=== PATIENT | male | born 1940 | race Caucasian/White ===

== ENCOUNTER 2021-03-11 17:44 | Inpatient (IN) | payer OTHER, SELFPAY ==
[2021-03-11] VITALS (71 sets, daily range): BP systolic 115–202; BP diastolic 57–89; PULSE 57–126; RESP 11–28; TEMP 37.2; O2SAT 83–99; BMI 28.5
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
[2021-03-11] MEDS: MORPHINE 4 MG/ML INJ (17:56)
[2021-03-11 17:57] LABS: Add Manual Diff / Slide Review NO; Basophils Absolute Auto 0 /uL (0-100); Basophils Percent Auto 0.6 % (0-2); Eosinophils Absolute Auto 300 /uL (0-450); Eosinophils Percent Auto 3.6 % (2-4); Hematocrit 41.1 % (41-53); Hemoglobin 13.7 g/dL (13.5-17.5); Lymphocytes Absolute Auto 2200 /uL (1100-4500); Lymphocytes Percent Auto 27.2 % (25-40); Mean Corpuscular HGB Conc 33.3 % (30-36); Mean Corpuscular Hemoglobin 30.1 PG (26-34); Mean Corpuscular Volume 90.4 fL (80-100); Monocytes Absolute Auto 500 /uL (0-900); Monocytes Percent Auto 6.8 % (3-14); Neutrophils Absolute Auto 4900 /uL (1500-7000); Neutrophils Percent Auto 61.8 % (50-75); Platelet Count 252 X10^3/uL (150-400); Red Blood Cell Count 4.54 X10^6/uL (4.5-5.9); Red Cell Distribution Width 14.7 % (11.6-14.8); White Blood Cell Count 7.9 X10^3/uL (4.5-11.0)
[2021-03-11 17:58] LABS: Prothrombin Time 46.5 SECONDS (10.1-12.7)
[2021-03-11 18:01] LABS: PTT Partial Thromboplastin Tim 46 SECONDS (26.4-36.2)
[2021-03-11 18:03] LABS: Alanine Aminotransferase 51 IU/L (<50); Albumin 4.7 g/dL (3.5-5.0); Albumin Globulin Ratio 1.3 (1.0-2.8); Alkaline Phosphatase 90 U/L (38-126); Aspartate Aminotransferase 39 IU/L (17-59); BUN Creatinine Ratio 18.2 (6-22); Bilirubin Total 0.5 mg/dL (0.2-1.3); Blood Urea Nitrogen 22 mg/dL (9-20); Calcium 9.6 mg/dL (8.4-10.2); Carbon Dioxide 32 mmol/L (22-32); Chloride 102 mmol/L (98-107); Creatine Kinase 140 U/L (55-170); Estimated Glomerular Filt Rate 57.7 mL/min (>60); Globulin 3.6 g/dL (1.7-4.1); Glucose 147 mg/dL (80-110); HEMOLYSIS 23 (0-50); Potassium 4.6 mmol/L (3.4-5.1); Sodium 140 mmol/L (137-145); Total Protein 8.3 g/dL (6.3-8.2)
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
[2021-03-11 18:15] LABS: Troponin I < 0.012 ng/mL (0.01-0.034)
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
[2021-03-11 18:18] LABS: CKMB % Relative Index 1.9 % (1.5-5.0); Creatine Kinase MB 2.62 ng/mL (<2.37)
[2021-03-11 18:20] LABS: Lactate (Lactic Acid) 1.8 mmol/L (0.7-2.1)
[2021-03-11] MEDS: HYDROMORPHONE 0.5 MG INJ IV (19:05)
--- NOTE | 2021-03-11 19:25 | DI.RAD.S_ITS ---
PROCEDURE: XR KNEE LT 1TO2V INDICATIONS: pain swelling TECHNIQUE: 2 views of the knee were acquired. COMPARISON: None. FINDINGS: Bones: There is a mildly displaced proximal left fibular diaphyseal fracture with overlying soft tissue edema. No suspicious bony lesions. Degenerative changes of the left knee are noted. Soft tissues: No joint effusion. No suspicious soft tissue calcifications. Surgical clips noted in the medial aspect of the left lower leg. IMPRESSION: Mildly displaced proximal left fibular diaphyseal fracture. Dictated by: Jai Vences M.D. on 03/11/2021 at 19:52 Approved by: Jai Vences M.D. on 03/11/2021 at 19:53
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
--- NOTE | 2021-03-11 20:57 | PC.NURSE ---
Called Dr. Mendez regarding pain medications. Med rec is now complete, she will review and place new orders.
[2021-03-11] MEDS: MORPHINE 2 MG/ML INJ IV (21:42)
[2021-03-11] MEDS: ONDANSETRON 4 MG/2 ML INJ (21:43)
[2021-03-11] MEDS: ATORVASTATIN 20 MG TABLET 40 MG PO (21:47)
[2021-03-11] MEDS: PRAMIPEXOLE 0.25 MG TABLET 1 MG PO (21:47)
[2021-03-11] MEDS: AMLODIPINE 5 MG TABLET 10 MG PO (21:47)
[2021-03-11] MEDS: DOCUSATE 100 MG CAPSULE PO (21:47)
[2021-03-11 21:48] LABS: COVID19 - ADMIT (NP swab/PCR) Negative (Negative)
[2021-03-11] MEDS: GABAPENTIN 600 MG TABLET 1200 MG PO (21:48)
[2021-03-11] MEDS: carvediloL 12.5 MG TABLET PO (21:48)
[2021-03-11] MEDS: lisinopriL 20 MG TABLET PO (21:48)
[2021-03-11] MEDS: AMITRIPTYLINE 25 MG TABLET 50 MG PO (21:49)
[2021-03-11] MEDS: CITALOPRAM 10 MG TABLET 20 MG PO (21:49)
[2021-03-11] MEDS: DEXTROSE 5%-0.45% NS 1,000 ML 75 ML IV (22:03)
[2021-03-11 22:28] LABS: Hematocrit 34.7 % (41-53); Hemoglobin 11.5 g/dL (13.5-17.5)
--- NOTE | 2021-03-11 22:47 | PC.NURSE ---
2210: Pt noted to have increased HR at 126. Unable to identify rhythm on monitor. RT called for EKG. repeat H&H drawn. Pt with h/o afib and takes warfarin. INR 4.0 tonight and warfarin held. When RT in room for EKG pt noted to convert to NSR 64. NAD. Pt uncomfortable on stretcher and inpt hospital bed requested. turned on R side for comfort. attempting to sleep. at bedside.
[2021-03-11] MEDS: ONDANSETRON 4 MG/2 ML INJ IV (23:24)
[2021-03-11] MEDS: OXYCODONE IR 5 MG TABLET PO (23:24)
--- NOTE | 2021-03-11 23:25 | PC.NURSE ---
Dressings changed on forehead and under nose. pt moved to inpatient bed. appears more comfortable, medicated for pain. NAD. at bedside
--- NOTE | 2021-03-11 23:42 | PC.NURSE ---
Call placed to Dr Mendez regarding decrease in H&H and pt converting in and out of AFib. Orders for type and screen and Vitamin K 10 mg IVPB.
[2021-03-12] VITALS (20 sets, daily range): BP systolic 105–156; BP diastolic 52–98; PULSE 66–80; RESP 10–27; TEMP 36.6–36.8; O2SAT 91–100; BMI 28.5
[2021-03-12] MEDS: PHYTONADIONE (VIT K1) 10 MG in SODIUM CHLORIDE 0.9% 100 ML 202 ML IV (00:20)
[2021-03-12] MEDS: MORPHINE 2 MG/ML INJ IV ×2 (00:31→09:48)
[2021-03-12] MEDS: MORPHINE 4 MG/ML INJ IV ×4 (02:35→20:54)
[2021-03-12] MEDS: METOCLOPRAMIDE 10 MG/2 ML INJ IV (02:36)
[2021-03-12 06:03] LABS: Add Manual Diff / Slide Review NO; Basophils Absolute Auto 0 /uL (0-100); Basophils Percent Auto 0.5 % (0-2); Eosinophils Absolute Auto 100 /uL (0-450); Eosinophils Percent Auto 0.5 % (2-4); Hematocrit 30.9 % (41-53); Hemoglobin 10.4 g/dL (13.5-17.5); Lymphocytes Absolute Auto 1000 /uL (1100-4500); Lymphocytes Percent Auto 9.9 % (25-40); Mean Corpuscular HGB Conc 33.5 % (30-36); Mean Corpuscular Hemoglobin 30.2 PG (26-34); Monocytes Absolute Auto 600 /uL (0-900); Monocytes Percent Auto 6.6 % (3-14); Neutrophils Absolute Auto 8000 /uL (1500-7000); Neutrophils Percent Auto 82.5 % (50-75); Platelet Count 204 X10^3/uL (150-400); Red Blood Cell Count 3.43 X10^6/uL (4.5-5.9); Red Cell Distribution Width 14.8 % (11.6-14.8); White Blood Cell Count 9.7 X10^3/uL (4.5-11.0)
[2021-03-12 06:06] LABS: Alanine Aminotransferase 33 IU/L (<50); Albumin 3.4 g/dL (3.5-5.0); Albumin Globulin Ratio 1.3 (1.0-2.8); Alkaline Phosphatase 53 U/L (38-126); Aspartate Aminotransferase 29 IU/L (17-59); BUN Creatinine Ratio 17.4 (6-22); Bilirubin Total 0.7 mg/dL (0.2-1.3); Blood Urea Nitrogen 19 mg/dL (9-20); Calcium 8.4 mg/dL (8.4-10.2); Carbon Dioxide 31 mmol/L (22-32); Chloride 104 mmol/L (98-107); Estimated Glomerular Filt Rate > 60.0 mL/min (>60); Globulin 2.7 g/dL (1.7-4.1); Glucose 173 mg/dL (80-110); HEMOLYSIS < 15 (0-50); Potassium 4.5 mmol/L (3.4-5.1); Sodium 136 mmol/L (137-145); Total Protein 6.1 g/dL (6.3-8.2)
[2021-03-12 06:14] LABS: NT-proBNP (BNP-Adult 18+) 214 pg/mL (<450)
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
[2021-03-12 08:03] LABS: INR 1.8 (0.9-1.3); Prothrombin Time 20.2 SECONDS (10.1-12.7)
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
[2021-03-12] MEDS: MORPHINE ER 15 MG TABLET PO ×2 (08:21→20:14)
[2021-03-12] MEDS: DOCUSATE 100 MG CAPSULE PO ×2 (08:22→20:10)
[2021-03-12] MEDS: lisinopriL 20 MG TABLET PO ×2 (08:22→20:13)
[2021-03-12] MEDS: GABAPENTIN 600 MG TABLET PO (08:23)
[2021-03-12] MEDS: carvediloL 12.5 MG TABLET PO ×2 (08:23→20:11)
[2021-03-12] MEDS: OXYCODONE IR 5 MG TABLET 15 MG PO ×2 (09:28→20:10)
[2021-03-12] MEDS: polyethylene glycoL 3350 17 GM POWD.PACK PO ×3 (09:36→20:09)
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
[2021-03-12] MEDS: DEXTROSE 5%-0.45% NS 1,000 ML 75 ML IV (12:14)
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
[2021-03-12] MEDS: OXYCODONE IR 5 MG TABLET PO (18:01)
[2021-03-12] MEDS: ACETAMINOPHEN 325 MG TABLET 650 MG PO (18:01)
[2021-03-12] MEDS: WARFARIN 5 MG TABLET PO (18:02)
--- NOTE | 2021-03-12 18:48 | PC.NURSE ---
Pt has been taking a nap on/off. medicated with morphine then he fell asleep. pt worked with PT. PT/OT assist only. pt ate his dinner. at bedside
[2021-03-12] MEDS: CITALOPRAM 10 MG TABLET 20 MG PO (20:09)
[2021-03-12] MEDS: AMLODIPINE 5 MG TABLET 10 MG PO (20:11)
[2021-03-12] MEDS: ATORVASTATIN 20 MG TABLET 40 MG PO (20:13)
[2021-03-12] MEDS: AMITRIPTYLINE 25 MG TABLET 50 MG PO (20:15)
[2021-03-12] MEDS: PRAMIPEXOLE 1 MG TABLET PO (20:17)
[2021-03-12] MEDS: ONDANSETRON 4 MG/2 ML INJ IV (21:01)
[2021-03-12] MEDS: GABAPENTIN 600 MG TABLET 1200 MG PO (21:03)
[2021-03-13] VITALS (10 sets, daily range): BP systolic 128–163; BP diastolic 44–64; PULSE 73–89; RESP 18–19; TEMP 36.9–38; O2SAT 88–96; BMI 28.4
[2021-03-13] MEDS: METOCLOPRAMIDE 10 MG/2 ML INJ IV (00:44)
[2021-03-13] MEDS: MORPHINE 4 MG/ML INJ IV ×2 (00:44→12:12)
[2021-03-13] MEDS: DEXTROSE 5%-0.45% NS 1,000 ML 75 ML IV (01:54)
[2021-03-13] MEDS: OXYCODONE IR 5 MG TABLET PO ×2 (06:43→15:41)
[2021-03-13] MEDS: ACETAMINOPHEN 325 MG TABLET 650 MG PO ×2 (06:44→15:42)
[2021-03-13] MEDS: carvediloL 12.5 MG TABLET PO ×2 (09:08→21:57)
[2021-03-13] MEDS: GABAPENTIN 600 MG TABLET PO (09:08)
[2021-03-13] MEDS: DOCUSATE 100 MG CAPSULE PO ×2 (09:08→21:52)
[2021-03-13] MEDS: lisinopriL 20 MG TABLET PO ×2 (09:08→21:52)
[2021-03-13] MEDS: OXYCODONE IR 5 MG TABLET 15 MG PO ×2 (09:09→21:51)
[2021-03-13] MEDS: MORPHINE ER 15 MG TABLET PO ×2 (09:12→21:56)
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
--- NOTE | 2021-03-13 12:09 | CM.DPNOTE ---
Faxed referral pckt. to [facility] per Debra and received fax conf. Gail Alfaro CM Asst.
[2021-03-13] MEDS: SODIUM CHLORIDE 0.9% FLUSH 10 ML IV ×2 (12:12→22:05)
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
--- NOTE | 2021-03-13 15:03 | OT.IPNOTE ---
Went to go see pt for OT eval and able to talk to the pt and his . Pt states just got back into bed and would rather wait until tomorrow for OT eval.
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
[2021-03-13] MEDS: MAG HYDROX/ALUM/SIMETH 30 ML UDC PO (15:41)
[2021-03-13 15:54] LABS: Add Manual Diff / Slide Review NO; Basophils Absolute Auto 0 /uL (0-100); Basophils Percent Auto 0.2 % (0-2); Eosinophils Absolute Auto 400 /uL (0-450); Eosinophils Percent Auto 2.8 % (2-4); Hematocrit 31.5 % (41-53); Hemoglobin 10.3 g/dL (13.5-17.5); Lymphocytes Absolute Auto 1400 /uL (1100-4500); Lymphocytes Percent Auto 10.3 % (25-40); Mean Corpuscular HGB Conc 32.6 % (30-36); Mean Corpuscular Hemoglobin 29.9 PG (26-34); Mean Corpuscular Volume 91.7 fL (80-100); Monocytes Absolute Auto 1600 /uL (0-900); Monocytes Percent Auto 11.1 % (3-14); Neutrophils Absolute Auto 10500 /uL (1500-7000); Neutrophils Percent Auto 75.6 % (50-75); Platelet Count 167 X10^3/uL (150-400); Red Blood Cell Count 3.43 X10^6/uL (4.5-5.9); Red Cell Distribution Width 15.4 % (11.6-14.8); White Blood Cell Count 13.9 X10^3/uL (4.5-11.0)
[2021-03-13] MEDS: WARFARIN 5 MG TABLET PO (17:11)
[2021-03-13] MEDS: PRAMIPEXOLE 1 MG TABLET PO (21:50)
[2021-03-13] MEDS: AMITRIPTYLINE 25 MG TABLET 50 MG PO (21:51)
[2021-03-13] MEDS: ATORVASTATIN 20 MG TABLET 40 MG PO (21:51)
[2021-03-13] MEDS: AMLODIPINE 5 MG TABLET 10 MG PO (21:56)
[2021-03-13] MEDS: CITALOPRAM 10 MG TABLET 20 MG PO (21:56)
[2021-03-13] MEDS: GABAPENTIN 600 MG TABLET 1200 MG PO (21:56)
[2021-03-13] MEDS: polyethylene glycoL 3350 17 GM POWD.PACK PO (22:00)
[2021-03-14] VITALS (14 sets, daily range): BP systolic 121–159; BP diastolic 48–54; PULSE 67–92; RESP 14–20; TEMP 36.3–37.9; O2SAT 91–96
[2021-03-14] MEDS: MORPHINE 4 MG/ML INJ 6 MG IV (06:15)
[2021-03-14] MEDS: ONDANSETRON 4 MG/2 ML INJ IV ×2 (06:16→20:42)
[2021-03-14] MEDS: carvediloL 12.5 MG TABLET PO ×2 (10:10→20:46)
[2021-03-14] MEDS: polyethylene glycoL 3350 17 GM POWD.PACK PO ×2 (10:11→20:47)
[2021-03-14] MEDS: DOCUSATE 100 MG CAPSULE PO ×2 (10:11→20:46)
[2021-03-14] MEDS: lisinopriL 20 MG TABLET PO ×2 (10:11→20:46)
[2021-03-14] MEDS: GABAPENTIN 600 MG TABLET PO (10:11)
[2021-03-14] MEDS: SODIUM CHLORIDE 0.9% FLUSH 10 ML IV (10:12)
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
--- NOTE | 2021-03-14 13:52 | DI.CT.S_ITS ---
PROCEDURE: CT HEAD/BRAIN WO CON INDICATIONS: change in mental status TECHNIQUE: Noncontrast 4.5 mm thick angled axial sections acquired from the foramen magnum to the vertex, with coronal and sagittal reformats. For radiation dose reduction, the following was used: automated exposure control, adjustment of mA and/or kV according to patient size. COMPARISON: [facility], CT, CT HEAD/BRAIN WO CON, 03/11/2021, 17:56. FINDINGS: Image quality: Excellent. CSF spaces: Basal cisterns are patent. No extra-axial fluid collections. The ventricles are symmetric in size and shape. Brain: No intracranial bleeds or masses. There is cerebral volume loss for age, with resultant ventricular and sulcal prominence. There are periventricular and deep white matter chronic small vessel ischemic changes. There is intracranial internal carotid artery atherosclerosis. Skull and face: Calvarium and visualized facial bones appear intact, without suspicious lesions. Incidental unilateral right intra-ocular lens replacement noted. Sinuses: Visualized sinuses and mastoids are clear. Nasal bone fractures are similar to the prior IMPRESSION: 1. Atrophy and multifocal chronic ischemic change without intracranial hemorrhage or mass effect. 2. Comminuted nasal bone fracture, stable Approved by: Yusef Bright M.D. on 03/14/2021 at 14:15
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
[2021-03-14 14:46] LABS: Add Manual Diff / Slide Review NO; Basophils Absolute Auto 0 /uL (0-100); Basophils Percent Auto 0.4 % (0-2); Eosinophils Absolute Auto 200 /uL (0-450); Eosinophils Percent Auto 2.3 % (2-4); Hematocrit 29.5 % (41-53); Hemoglobin 9.9 g/dL (13.5-17.5); Lymphocytes Absolute Auto 1100 /uL (1100-4500); Lymphocytes Percent Auto 10.9 % (25-40); Mean Corpuscular HGB Conc 33.5 % (30-36); Mean Corpuscular Hemoglobin 30.5 PG (26-34); Monocytes Absolute Auto 1000 /uL (0-900); Monocytes Percent Auto 10.1 % (3-14); Neutrophils Absolute Auto 7900 /uL (1500-7000); Neutrophils Percent Auto 76.3 % (50-75); Platelet Count 189 X10^3/uL (150-400); Red Blood Cell Count 3.24 X10^6/uL (4.5-5.9); Red Cell Distribution Width 15.2 % (11.6-14.8); White Blood Cell Count 10.3 X10^3/uL (4.5-11.0)
[2021-03-14 14:54] LABS: INR 1.7 (0.9-1.3); Prothrombin Time 19.3 SECONDS (10.1-12.7)
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
[2021-03-14 14:58] LABS: Alanine Aminotransferase 30 IU/L (<50); Albumin 3.6 g/dL (3.5-5.0); Albumin Globulin Ratio 1.3 (1.0-2.8); Alkaline Phosphatase 56 U/L (38-126); Aspartate Aminotransferase 77 IU/L (17-59); BUN Creatinine Ratio 21.1 (6-22); Bilirubin Total 0.6 mg/dL (0.2-1.3); Blood Urea Nitrogen 20 mg/dL (9-20); Calcium 8.8 mg/dL (8.4-10.2); Carbon Dioxide 32 mmol/L (22-32); Chloride 99 mmol/L (98-107); Estimated Glomerular Filt Rate > 60.0 mL/min (>60); Globulin 2.8 g/dL (1.7-4.1); Glucose 149 mg/dL (80-110); HEMOLYSIS < 15 (0-50); Potassium 4.7 mmol/L (3.4-5.1); Sodium 134 mmol/L (137-145); Total Protein 6.4 g/dL (6.3-8.2)
[2021-03-14] MEDS: SODIUM CHLORIDE 0.9% 1,000 ML 84 ML IV (15:28)
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
[2021-03-14] MEDS: WARFARIN 5 MG TABLET 2.5 MG PO (17:59)
[2021-03-14] MEDS: ATORVASTATIN 20 MG TABLET 40 MG PO (20:46)
[2021-03-14] MEDS: GABAPENTIN 600 MG TABLET 1200 MG PO (20:46)
[2021-03-14] MEDS: AMLODIPINE 5 MG TABLET 10 MG PO (20:46)
[2021-03-14] MEDS: CITALOPRAM 10 MG TABLET 20 MG PO (20:46)
[2021-03-14] MEDS: AMITRIPTYLINE 25 MG TABLET 50 MG PO (20:47)
[2021-03-14] MEDS: PRAMIPEXOLE 1 MG TABLET PO (20:47)
[2021-03-14] MEDS: OXYCODONE IR 5 MG TABLET 15 MG PO (20:47)
[2021-03-14] MEDS: MAG HYDROX/ALUM/SIMETH 30 ML UDC PO (22:32)
[2021-03-14] MEDS: ACETAMINOPHEN 325 MG TABLET 650 MG PO (22:32)
[2021-03-15] VITALS (8 sets, daily range): BP systolic 101–151; BP diastolic 36–69; PULSE 64–81; RESP 16–18; TEMP 36.4–37.3; O2SAT 92–97
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
[2021-03-15] MEDS: SODIUM CHLORIDE 0.9% 1,000 ML 84 ML IV ×2 (03:08→14:45)
[2021-03-15] MEDS: polyethylene glycoL 3350 17 GM POWD.PACK PO ×2 (11:30→21:15)
[2021-03-15] MEDS: DOCUSATE 100 MG CAPSULE PO ×2 (11:30→20:48)
--- NOTE | 2021-03-15 12:23 | PC.NURSE ---
SHALONDA Leon, and SHALONDA Goddard, both attempted x2 to insert a new IV in patient. All attempts were unsuccessful. Current IV still infusing, IV site normal.
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
[2021-03-15] MEDS: MAG HYDROX/ALUM/SIMETH 30 ML UDC PO ×2 (13:21→21:15)
[2021-03-15] MEDS: OXYCODONE IR 5 MG TABLET PO ×2 (13:21→18:48)
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
[2021-03-15] MEDS: MORPHINE 2 MG/ML INJ IV (15:56)
--- NOTE | 2021-03-15 16:02 | CM.DPC ---
DCP continued: CM met with patient and patients Gabriella at the bedside to discuss discharge planning. patients and patients is very adamant that patient not go to SNF here but wants to go to SNF in [place]. Patients only wants to go to SNF [facility] in [place] since they are letting family still visit and that is the only one they want to go to. Patient will need a [employer] auth for SNF. CM attempted to call [facility] today to check on referral sent on Tuesday. [facility] has no admissions on the weekends so there was no one to talk to about patients. CM department will need to follow up in the morning and see if the facility is contracted through [employer] and if they are an auth will need to be started. If this facility is not contracted through [employer] then the patient is willing to pay out of pocket to go to this facility. CM department will follow up with [facility] and see if what there cost is per day and talk with the patient and his about this expense if [facility] is not contracted with this SNF. IF patient goes to SNF then a PASRR will need to be completed. If neither of these are options then the patient and family want to take the patient home, with [facility] in [place]. referral faxed to them at [phone] and will need a F2F signed by the MD. A completed F2F is in the patients red Chart waiting to be signed. Patients will also need private pay caregiver resources to follow up on so she can hire a caregiver. Patients retired RN daughter is also planning on flying in and being her to assist the patient with recovery. Patient currently 2 person assist according to PT assessment. Krystina Madison RN Case Manger
[2021-03-15] MEDS: WARFARIN 5 MG TABLET 2.5 MG PO (16:45)
[2021-03-15 17:00] LABS: INR 2.8 (0.9-1.3); Prothrombin Time 31.9 SECONDS (10.1-12.7)
[2021-03-15] MEDS: PRAMIPEXOLE 1 MG TABLET PO (20:47)
[2021-03-15] MEDS: AMLODIPINE 5 MG TABLET 10 MG PO (20:47)
[2021-03-15] MEDS: AMITRIPTYLINE 25 MG TABLET 50 MG PO (20:48)
[2021-03-15] MEDS: ATORVASTATIN 20 MG TABLET 40 MG PO (20:48)
[2021-03-15] MEDS: CITALOPRAM 10 MG TABLET 20 MG PO (20:52)
[2021-03-15] MEDS: OXYCODONE IR 5 MG TABLET 15 MG PO (22:41)
[2021-03-15] MEDS: GABAPENTIN 600 MG TABLET 1200 MG PO (22:41)
[2021-03-15] MEDS: SODIUM CHLORIDE 0.9% FLUSH 10 ML IV (22:42)
--- NOTE | 2021-03-15 23:30 | PC.NURSE ---
SHIFT Report received, care assumed 193. A&Ox4, pleasant, appropriate. Spouse at bedside. C/o chronic pain (neck, back) as well as acute pain (left arm/wrist, left leg, face, right chest/ribs). Using ice packs on posterior neck, left wrist, nose/lip. Pt and spouse verbalize that they're trying to manage pain without significantly decreasing level of consciousness. Discussed use of ice packs, pain meds, repositioning, and splinting. Pt also verbalizes some upper GI upset and constipation; Maalox and milk of magnesia administered. BP meds held for DBP<60. 2LNC. Pt encouraged to deep breathe and keep HOB elevated.
[2021-03-16] VITALS (10 sets, daily range): BP systolic 121–147; BP diastolic 40–58; PULSE 69–75; RESP 16–18; TEMP 36.6–37.1; O2SAT 91–97
[2021-03-16] MEDS: OXYCODONE IR 5 MG TABLET 15 MG PO ×2 (07:44→21:41)
[2021-03-16] MEDS: DOCUSATE 100 MG CAPSULE PO ×2 (08:28→21:40)
[2021-03-16] MEDS: polyethylene glycoL 3350 17 GM POWD.PACK PO ×3 (08:28→21:29)
[2021-03-16] MEDS: ACETAMINOPHEN 325 MG TABLET 650 MG PO ×2 (08:28→14:43)
[2021-03-16] MEDS: GABAPENTIN 600 MG TABLET PO (08:29)
[2021-03-16] MEDS: SODIUM CHLORIDE 0.9% FLUSH 10 ML IV ×2 (08:33→21:42)
--- NOTE | 2021-03-16 09:15 | PM.PN.1 ---
Subjective Subjective Date Patient Seen: 03/16/21 Time Patient Seen: 09:15 Exam Vital Signs (past 8 hours): - 03/16/21 05:00 03/16/21 08:59 Temperature 98.6 F Pulse Rate 75 75 Respiratory Rate 16 Blood Pressure 122/40 L 124/52 L Pulse Oximetry 92 92 Oxygen Delivery Method Nasal Cannula Oxygen Flow Rate 2 Narrative Exam Narrative: No new complaints. Feeling slightly better today. Objective ECG Impression: No acute distress Labs Result Diagrams: 03/14/21 14:38 03/14/21 14:38 Labs: Laboratory Results - last 24 hr 03/15/21 16:45 PT 31.9 H D INR 2.8 H PFSH Social History household members: spouse Smoking Status: Never smoker Assessment & Plan Assessment and plan (1) Fracture of rib: Qualifiers: Encounter type: initial encounter Fracture type: closed Laterality: right Rib fracture type: multiple ribs Qualified Code(s): S22.41XA - Multiple fractures of ribs, right side, initial encounter for closed fracture Status: Acute Plan: Await SNF placement Incentive spirometer Time Spent With Patient Critical Care time: I spent a total of [] minutes of critical care time on this patient's care today; this time is exclusive of procedural time.
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
--- NOTE | 2021-03-16 15:07 | CM.DPC ---
DCP Cont: This welfare case worker had follow up and attempted to reach out to admissions at [facility]. Was told that admissions was Althea, and left her a message. Spoke to , Gabriella, and she indicated, if she can't get him to a facility in that area, she will take him home with home health. Let her know that this may be the only option at this point. Spouse is prepared for this. Althea from [facility] called back. She gave her cell number of: [phone]. She indicated that they do have beds available. She also indicated, she needs go get a denial from [facility] before patient can pay privately, and she can start the auth today. She gave a fax number of: [phone]. Gail, academic support assistant, is faxing over Althea clinical notes, including P.T, and O.T. notes so Althea can submit them to [facility]. Updated patient and , Gabriella. She is happy, may be the best thing for her . Discussed transportation on how to get patient to the [facility], and then, transport to the facility. Gave her the phone numbers for [facility], for this welfare case worker indicated that transportation may be costly, unknown as far as what it would cost, and [place], or if another company would need to meet the ambulance service. Encouraged her to call these transportation companies, letting her know that care management will set up transportation, but unknown as of yet which transportation service. Patient's will call companies this pm or in am and update this welfare case worker. P: DCP to continue to work on getting patient to [place]. According to patient and spouse, patient did better with P.T. today. He is motivated to be able to get stronger to go home. Will follow up with Althea at [place] tomorrow. Gena Houston RN/Lineman A Class
--- NOTE | 2021-03-16 15:11 | CM.DPNOTE ---
Faxed referral packet to [facility] per Debra and received confirm. Gail Alfaro CM Asst.
[2021-03-16] MEDS: OXYCODONE IR 5 MG TABLET PO (16:24)
[2021-03-16] MEDS: WARFARIN 5 MG TABLET PO (16:59)
[2021-03-16] MEDS: PRAMIPEXOLE 1 MG TABLET PO (21:29)
[2021-03-16] MEDS: AMITRIPTYLINE 25 MG TABLET 50 MG PO (21:38)
[2021-03-16] MEDS: GABAPENTIN 600 MG TABLET 1200 MG PO (21:39)
[2021-03-16] MEDS: ATORVASTATIN 20 MG TABLET 40 MG PO (21:40)
[2021-03-16] MEDS: CITALOPRAM 10 MG TABLET 20 MG PO (21:40)
[2021-03-17] VITALS (11 sets, daily range): BP systolic 132–148; BP diastolic 46–60; PULSE 64–86; RESP 16–20; TEMP 36.6–37.3; O2SAT 93–96
[2021-03-17] MEDS: DOCUSATE 100 MG CAPSULE PO (09:17)
[2021-03-17] MEDS: GABAPENTIN 600 MG TABLET PO (09:17)
[2021-03-17] MEDS: OXYCODONE IR 5 MG TABLET 15 MG PO ×2 (09:17→20:26)
[2021-03-17] MEDS: SODIUM CHLORIDE 0.9% FLUSH 10 ML IV ×2 (09:18→20:25)
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
--- NOTE | 2021-03-17 11:33 | CM.DPC ---
DCP Cont: Left Althea, admissions contact at [facility] in [place], a message on her cell phone. She was going to work on insurance auth for patient with his [employer], for placement. Wanted to ensure that she received the information needed, such as P.T. notes. Her cell phone is in previous DC planning note from yesterday. At this time, patient is max assist of two for transfers, and is currently on some oxygen. P: DCP to continue to follow. Will continue to work on placement at [facility] in [place]. Althea is liason, and was working on [employer] authorization. Gena Houston RN/Help Desk Rep
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
[2021-03-17] MEDS: WARFARIN 5 MG TABLET 2.5 MG PO (17:26)
[2021-03-17] MEDS: ACETAMINOPHEN 325 MG TABLET 650 MG PO (17:36)
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
[2021-03-17] MEDS: OXYCODONE IR 5 MG TABLET PO (18:17)
--- NOTE | 2021-03-17 18:38 | PC.NURSE ---
Pt A&Ox3, VSS, although DBP still remains low and thus A.M. antihypertensive medications held. Pt reports pain increased to 7/10 this a.m. but well controlled with scheduled oxycodone. He reports loose stool today after many days of constipation and laxatives. Stool softeners and laxatives held. He is on RA tolerating activity well throughout the entire day. LS CTA. Reaching 3000 on IS. He reports most pain in L wrist which noted to be swollen +CMS to fingers but limited ROM and with splint in place. ALIN wrap removed from contusion to L elbow due to slight swelling above and below bandage. Pt ambulating better today with FWW. Continuous monitoring.
--- NOTE | 2021-03-17 20:21 | DI.RAD.S_ITS ---
PROCEDURE: XR WRIST LT MIN 3V INDICATIONS: wrist pain TECHNIQUE: 3 views of the wrist were acquired. COMPARISON: [facility], , XR WRIST LT MIN 3V, 03/11/2021, 18:15. 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 Lucency projecting in the scaphoid which is concerning for scaphoid waist fracture. There is minimal displacement. No change in alignment since 03/11/21. Soft tissues: Chondrocalcinosis projects in the ulnocarpal compartment. IMPRESSION: Scaphoid waist fracture. This could be further assessed with cross-sectional imaging as clinically warranted. Dictated by: Dionte Moralez M.D. on 03/17/2021 at 21:19 Approved by: Dionte Moralez M.D. on 03/17/2021 at 21:22
[2021-03-17] MEDS: AMITRIPTYLINE 25 MG TABLET 50 MG PO (20:25)
[2021-03-17] MEDS: CITALOPRAM 10 MG TABLET 20 MG PO (20:25)
[2021-03-17] MEDS: GABAPENTIN 600 MG TABLET 1200 MG PO (20:26)
[2021-03-17] MEDS: ATORVASTATIN 20 MG TABLET 40 MG PO (20:26)
[2021-03-17] MEDS: PRAMIPEXOLE 1 MG TABLET PO (20:30)
--- NOTE | 2021-03-17 20:45 | DI.RAD.S_ITS ---
PROCEDURE: XR FINGER LT MIN 2V INDICATIONS: thumb pain and swelling/trauma TECHNIQUE: AP hand, 2 views of the left finger(s) acquired. COMPARISON: [facility], CR, XR WRIST LT MIN 3V, 03/17/2021, 20:32. FINDINGS: Bones: A lucency in the scaphoid is suspicious for scaphoid waist fracture. There is severe 1st CMC and triscaphe joint degeneration. Soft tissues: Ulnocarpal chondrocalcinosis. IMPRESSION: Suspected scaphoid fracture . Confirmation with cross-sectional imaging could be performed as clinically warranted. Dictated by: Dionte Moralez M.D. on 03/17/2021 at 21:23 Approved by: Dionte Moralez M.D. on 03/17/2021 at 21:24
[2021-03-18] VITALS (9 sets, daily range): BP systolic 133–162; BP diastolic 50–77; PULSE 62–102; RESP 17–22; TEMP 36.6–37.1; O2SAT 94–100
--- NOTE | 2021-03-18 03:10 | PC.NURSE ---
NOC Shift Note- Patient continues to complain of left wrist/thumb pain. Patient reports pain of 8/10 to left wrist and 5/10 to leg fx. Wist in velco splint as ordered. Called Dr. Mendez and recieved orders to repeat left wrist xrays due to continued and increased pain and swelling. Left arm up on pillow and ice pack provided. O2 /NC applied when patient fell asleep due to history of sleep apnea and inability to use CPAP due to nose Fx. Safety measures in place. in room. Call mccracken and phone within reach. will continue to monitor.
[2021-03-18] MEDS: GABAPENTIN 600 MG TABLET PO (08:36)
[2021-03-18] MEDS: OXYCODONE IR 5 MG TABLET 15 MG PO ×2 (08:37→20:33)
[2021-03-18] MEDS: DOCUSATE 100 MG CAPSULE PO ×2 (08:37→20:35)
[2021-03-18] MEDS: polyethylene glycoL 3350 17 GM POWD.PACK PO ×2 (08:37→20:37)
[2021-03-18] MEDS: SODIUM CHLORIDE 0.9% FLUSH 10 ML IV ×2 (08:38→20:45)
--- NOTE | 2021-03-18 10:03 | PM.PN.1 ---
Subjective Subjective Date Patient Seen: 03/18/21 Time Patient Seen: 10:03 Interval history: Repeat left wrist films last evening due to intensity of pain. Shows possible fracture. Exam Vital Signs (past 8 hours): - 03/18/21 02:27 03/18/21 06:00 03/18/21 08:36 Temperature 98.6 F 97.9 F Pulse Rate 76 76 62 Respiratory Rate 18 18 Blood Pressure 144/58 H 133/55 L Pulse Oximetry 97 100 03/18/21 08:37 03/18/21 09:10 Temperature 98.7 F Pulse Rate 62 82 Respiratory Rate 17 Blood Pressure 133/55 L 147/53 H Pulse Oximetry 99 Oxygen Delivery Method Room Air Oxygen Flow Rate 0 Narrative Exam Narrative: No new events overnight. other than repeat left wrist films Objective Labs Result Diagrams: 03/14/21 14:38 03/14/21 14:38 [facility] Social History household members: spouse Smoking Status: Never smoker Assessment & Plan Assessment & Plan narrative: No changes from general surgical stand point. Repeat left wrist film. Plan: Ortho consult called to Dr. Quinonez's office. Will look forward to his help. Still awaiting placement vs home with [facility]. Time Spent With Patient Time with patient: less than 30 minutes Critical Care time: I spent a total of [] minutes of critical care time on this patient's care today; this time is exclusive of procedural time.
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
--- NOTE | 2021-03-18 13:48 | CM.DPC ---
DCP Ongoing SNF planning: Per PT/OT, pt able to participate fairly well and feel that pt could safely transport via Private Vehicle at d/c to SNF. SW called pt's spouse and discussed above and she confirms that she called [facility] yesterday and confirmed the cost for transport to [place] but feels POV would be better for pt for comfort during the [facility] trip [facility]. Spouse also confirmed she called [facility] yesterday and was given a quote for cost and states between POV vs BLS transport her preference is BLS transport due to safety and medical monitoring and states she would like SW to plan on BLS transport and she will pay privately prior to d/c and was very appreciative of the information. SW completed the BLS form and called [facility] and confirmed they would be willing to transport the pt to [facility] in [place] and provided the address to [facility] and they are aware that d/c is hinging on final determination from [employer] and d/c could possibly be tomorrow or the next day. had previously signed F2F for HH (behind facesheet) as backup plan if SNF falls through. PERRY called Althea [phone], admissions at [facility], and she confirms she sent insurance auth yesterday afternoon 03/17/21 and has not gotten a determination from them yet but will call SW as soon as she hears and confirms they will accept pt under insurance or PP but need the determination from insurance first. Plan: PERRY to follow closely for [employer] determination prior to setting up BLS transport through [facility] to [facility] in [place] prior to safe return home with spouse. LOTUS Brown
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
--- NOTE | 2021-03-18 14:37 | PM.PN.1 ---
Subjective Subjective Date Patient Seen: 03/18/21 Interval history: discussed repeat films of left wrist w Dr. Quinonez of ortho Exam Vital Signs (past 8 hours): - 03/18/21 08:36 03/18/21 08:37 03/18/21 09:10 Temperature 98.7 F Pulse Rate 62 62 82 Respiratory Rate 17 Blood Pressure 133/55 L 133/55 L 147/53 H Pulse Oximetry 99 Oxygen Delivery Method Room Air Oxygen Flow Rate 0 Objective Labs Result Diagrams: 03/14/21 14:38 03/14/21 14:38 PFSH Social History household members: spouse Smoking Status: Never smoker Assessment & Plan Assessment & Plan narrative: continue with splint. follow up outpatient when swelling goes down for exam and possible repeat films. Essentially no change in current treatment Time Spent With Patient Critical Care time: I spent a total of [] minutes of critical care time on this patient's care today; this time is exclusive of procedural time.
[2021-03-18] MEDS: OXYCODONE IR 5 MG TABLET PO (15:04)
[2021-03-18] MEDS: WARFARIN 5 MG TABLET PO (17:24)
[2021-03-18] MEDS: CITALOPRAM 10 MG TABLET 20 MG PO (20:34)
[2021-03-18] MEDS: ATORVASTATIN 20 MG TABLET 40 MG PO (20:34)
[2021-03-18] MEDS: PRAMIPEXOLE 1 MG TABLET PO (20:35)
[2021-03-18] MEDS: GABAPENTIN 600 MG TABLET 1200 MG PO (20:35)
[2021-03-18] MEDS: AMITRIPTYLINE 25 MG TABLET 50 MG PO (20:41)
[2021-03-18] MEDS: carvediloL 12.5 MG TABLET PO (20:44)
[2021-03-18] MEDS: AMLODIPINE 5 MG TABLET 10 MG PO (20:44)
[2021-03-18] MEDS: lisinopriL 20 MG TABLET PO (20:45)
[2021-03-19] VITALS (7 sets, daily range): BP systolic 116–137; BP diastolic 51–66; PULSE 72–129; RESP 15–20; TEMP 36.6–37.1; O2SAT 94–100
--- NOTE | 2021-03-19 09:30 | CM.DPC ---
Addendum entered by Krystina Madison R.N. 03/19/21 15:07: CM Spoke to Yue at [facility] in [place]- she stated she heard from [facility] today and they are requesting current clinicals. Cm will fax over current clinicals to Althea as well as to Denise at [facility] at [phone] CM also called [facility] by calling [phone] to discuss SNF auth- currently SNF request is under Reference # [id number] and Cm called and confirmed all they are waiting on is current clinicals. Cm will fax those off and follow up later today. Krystina Madison RN Case [facility]. Original Note: DCP continued: CM met with patient and patients at the bedside and discussed pending [facility] Auth. CM stated that Althea from [facility] submitted auth request on 03/17/21 to [facility] patients stated she talked with patients about authorization and [facility] stated they have not received an auth request from the facility. CM Called Althea at [facility] and she stated she checked on authorization yesterday and didn't receive authorization approval yet that it is still pending. CM called and lVM with [facility] about authorization. Cm received a call back from [facility] about authorization and they stated they have not received a request for SNF auth. CM asked for confirmation number of request CM stated Althea with [facility] submitted request for authorization CM gave [facility] passenger relations representative Althea number at [place] to discuss SNF auth. CM will follow up with Althea after morning rounds to see what progress has been made on SNF auth and will follow up with patient this afternoon. Krystina Madison RN Case [facility]
[2021-03-19] MEDS: carvediloL 12.5 MG TABLET PO ×2 (09:47→20:41)
[2021-03-19] MEDS: DOCUSATE 100 MG CAPSULE PO (09:47)
[2021-03-19] MEDS: GABAPENTIN 600 MG TABLET PO (09:47)
[2021-03-19] MEDS: lisinopriL 20 MG TABLET PO ×2 (09:47→20:41)
[2021-03-19] MEDS: SODIUM CHLORIDE 0.9% FLUSH 10 ML IV (09:48)
[2021-03-19] MEDS: OXYCODONE IR 5 MG TABLET 15 MG PO ×2 (10:06→20:27)
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
--- NOTE | 2021-03-19 14:04 | PC.NURSE ---
Patient alert,oriented assisted to shower. Patient ambulating in [place] with QUALITY ASSURANCE ADVISOR and walker, gait steady.
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
[2021-03-19] MEDS: OXYCODONE IR 5 MG TABLET PO (15:40)
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
[2021-03-19] MEDS: WARFARIN 5 MG TABLET 2.5 MG PO (18:20)
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
[2021-03-19] MEDS: AMITRIPTYLINE 25 MG TABLET 50 MG PO (20:22)
[2021-03-19] MEDS: AMLODIPINE 5 MG TABLET 10 MG PO (20:23)
[2021-03-19] MEDS: ATORVASTATIN 20 MG TABLET 40 MG PO (20:23)
[2021-03-19] MEDS: CITALOPRAM 10 MG TABLET 20 MG PO (20:25)
[2021-03-19] MEDS: GABAPENTIN 600 MG TABLET 1200 MG PO (20:26)
[2021-03-19] MEDS: PRAMIPEXOLE 1 MG TABLET PO (20:28)
[2021-03-20 01:00] VITALS: BP 123/50; PULSE 66; RESP 18; TEMP 36.6; O2SAT 91
[2021-03-20 05:00] VITALS: BP 129/53; PULSE 69; RESP 18; TEMP 36.7; O2SAT 93
--- NOTE | 2021-03-20 08:46 | CM.DPC ---
DCP continued: CM called [facility] to check on authorization they approved the patient to go to SNF Auth Number [id number]. they approved [facility] in [place]. Patient and patient notified. CM called Althea at [facility] and they can accept the patient today when he is able to discharge and travel to their facility. FRANK contacted Dr. Farley who stated he will get DC orders written and will get us the patients signed medication list. FRANK spoke with patients nurse and she will assist with DC once orders are placed. FRANK spoke with the [facility] and she will set up priority boarding on the [facility] when DC orders are in and a DC time is determined. Once all that is completed CM will Fax PAS[facility], Orders and Medication list to Althea at [facility] in [place]. CM spoke with patient and his and they would like to transport the patient via POV to the SNF vs BLS transport CM let patients nurse know. FRANK will continue to work with the patient and there Care team to facilitate the DC plan to SNF. Krystina Lovell
[2021-03-20 09:00] VITALS: BP 139/55; PULSE 73; RESP 16; TEMP 36.9; O2SAT 98
[2021-03-20] MEDS: carvediloL 12.5 MG TABLET PO (09:25)
[2021-03-20] MEDS: OXYCODONE IR 5 MG TABLET 15 MG PO (09:25)
[2021-03-20] MEDS: lisinopriL 20 MG TABLET PO (09:26)
[2021-03-20] MEDS: GABAPENTIN 600 MG TABLET PO (09:26)
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
[2021-03-20 12:16] LABS: COVID19 -Nasal RAPID Negative (Negative)
[2021-03-20] MEDS: OXYCODONE IR 5 MG TABLET PO (12:24)
--- NOTE | 2021-03-20 13:45 | CM.DPNOTE ---
Faxed final SNF referral packet to [facility] at [phone] and fax confirm. received. Gail Alfaro CM Asst.
--- NOTE | 2021-03-20 13:54 | PC.NURSE ---
D/C packet given to to give to facility. Pt escorted out via w/c to private vehicle. Pt left in stable condition with all personal belongings.
== END 2021-03-20 13:45 | DRG 184 ==
LOC: ED 20:10 → AC 20:25
PROVIDERS: Emergency Medicine; Admitting Provider Surgery; Emergency Provider Emergency Medicine; Referring Provider Emergency Medicine; Visit Provider Surgery
DX: S22.41XA Multiple fractures of ribs, right side, initial encounter for closed fracture (principal); R71.0 Precipitous drop in hematocrit; S89.202A Unspecified physeal fracture of upper end of left fibula, initial encounter for closed fracture; S02.2XXA Fracture of nasal bones, initial encounter for closed fracture; Z79.01 Long term (current) use of anticoagulants; S62.002A Unspecified fracture of navicular [scaphoid] bone of left wrist, initial encounter for closed fracture; S50.02XA Contusion of left elbow, initial encounter; S00.83XA Contusion of other part of head, initial encounter; I10 Essential (primary) hypertension; E78.00 Pure hypercholesterolemia, unspecified; I48.91 Unspecified atrial fibrillation; I25.10 Atherosclerotic heart disease of native coronary artery without angina pectoris; V03.90XA Pedestrian on foot injured in collision with car, pick-up truck or van, unspecified whether traffic or nontraffic accident, initial encounter; Y92.410 Unspecified street and highway as the place of occurrence of the external cause; Z20.822 Contact with and (suspected) exposure to COVID-19
CPT/HCPCS: 36415; 70450; 71045; 71260; 72125; 73080; 73110; 73140; 73562; 73590; 73610; 74177; 80053; 82550; 82553; 83605; 83880; 84484; 85014; 85018; 85025; 85610; 85730; 86850; 86900; 86901; 87635; 93005; 93010; 94760; 96361; 96365; 96375; 97110; 97116; 97129; 97162; 97167; 97530; 97535; 99221; 99231; 99238; 99285; C9803; J1170; J2270; J2405; J2765; J3430; Q9967